=== PATIENT | male | born 1970 | race Two or more races ===

== ENCOUNTER 2020-05-18 06:23 | Inpatient (IN) | payer OTHER ==
[~2020-05-18] VITALS: Ht 175.3 cm; Wt 90.3 kg
[2020-05-18] VITALS (17 sets, daily range): BP systolic 114–165; BP diastolic 71–97
[2020-05-18] MEDS ORDERED: ceFAZolin sod 2 GM in NS 55 ML IVPB ONE (07:00)
[2020-05-18] MEDS ORDERED: Thrombin 5000 units TOPIC ONE (07:41)
[2020-05-18] MEDS ORDERED: Gelfoam Size TOPIC ONE (07:41)
[2020-05-18] MEDS ORDERED: Bacitracin 50000 Units Vial ONE ×2 (07:41→11:40)
--- NOTE | 2020-05-18 07:49 | Pre-Procedure Note/Attestation ---
Pre-Procedure Note/Attestation Complete Prior to Procedure Planned Procedure: not applicable Procedure Narrative: Anterior cervical discectomy and fusion of C45 and artificial disc replacement of Cervical 56 Indications for Procedure Pre-Operative Diagnosis: Cervical herniation of C45 56 67 Attestation I attest that I discussed the nature of the procedure; its benefits; risks and complications; and alternatives (and the risks and benefits of such alternatives ), prior to the procedure, with the patient (or the patient's legal development representative). I attest that, if there was a reasonable possibility of needing a blood transfusion, the patient (or the patient's legal development representative) was given the [facility] standardized written summary, pursuant to the Alexander Hartman Blood Safety Act ([place] Health and Safety Code # 1645, as amended). I attest that I re-evaluated the patient just prior to the surgery and that there has been no change in the patient's H&P, except as documented below: Kaden Garsia MD May 18, 2020 07:49
--- NOTE | 2020-05-18 07:52 | Brief Operative Note ---
Immediate Post Operative Note Operative Note Chief Complaint: neck pain and radiculopathy Pre-op Diagnosis: Cervical herniation of C45 56 67 Procedure: Anterior cervical discectomy and fusion of C45 and artificial disc replacement of Cervical 56 Post-op Diagnosis: same as pre-op Findings: consistent w/pre-op dx studies Surgeon: Ady [employer] Loader: Biju Anesthesiologist: Trudi Anesthesia: general Specimen: none Complications: none Condition: stable Fluids: IVF Estimated Blood Loss: minimal Drains: none Implant(s) used?: Yes - prodisc C sz 5 , nuvasive c interlock sz 5 screws 3x13 Kaden Garsia MD May 18, 2020 07:52
[2020-05-18] MEDS ORDERED: Naloxone 0.4mg/ml Inj IVP PRN (08:00)
[2020-05-18] MEDS ORDERED: Morphine Sulfate 4mg/ml Inj (IV USE ONLY) IV PRN ×2 (08:00)
[2020-05-18] MEDS ORDERED: Morphine Sulfate 2mg/ml Inj(IV/IM USE ONLY) IV PRN (08:00)
[2020-05-18] MEDS ORDERED: HYDROcodone/Acetamin 5/325 tab ORAL PRN ×2 (08:00→09:30)
[2020-05-18] MEDS ORDERED: Chloraseptic Spray 20mL Bottle ORAL PRN (08:00)
[2020-05-18] MEDS ORDERED: HYDROcodone/Acetamin 7.5/325 tab ORAL PRN ×3 (08:00→09:30)
[2020-05-18] MEDS ORDERED: Milk of Magnesia 30ml Ud ORAL PRN (08:00)
[2020-05-18] MEDS ORDERED: Metoclopramide 10mg/2ml Inj IVP PRN (08:00)
[2020-05-18] MEDS ORDERED: HYDROmorphone 1mg/ml Carpuject IVP PRN (08:00)
[2020-05-18] MEDS ORDERED: CIPROFLOXACIN500 M2 ORAL (08:10)
[2020-05-18] MEDS ORDERED: TEMAZEPAM30 MG ORAL (08:12)
[2020-05-18] MEDS ORDERED: IBUPROFEN600 M1 ORAL (08:12)
[2020-05-18] MEDS ORDERED: LR 1000ml 1,000 ML IVLG SCH (09:24)
[2020-05-18] MEDS ORDERED: LORazepam Inj 2mg/ml 1ml IV PRN (09:30)
[2020-05-18] MEDS ORDERED: Hydromorphone 0.5mg/0.5ml inj IVP PRN (09:30)
[2020-05-18] MEDS ORDERED: Atropine Sulfate 0.4mg/ml inj IVP PRN (09:30)
[2020-05-18] MEDS ORDERED: oxyCODONE HCL/Acetaminophen 5/325mg ORAL PRN (09:30)
[2020-05-18] MEDS ORDERED: Meperidine 25mg/0.5ml Inj (FOR RIGORS ONLY) IV PRN (09:30)
[2020-05-18] MEDS ORDERED: DiphenhydrAMINE 50mg/ml Inj IVP PRN (09:30)
[2020-05-18] MEDS ORDERED: Midazolam 2mg/2ml Inj IVP PRN (09:30)
[2020-05-18] MEDS ORDERED: Ketorolac 30mg Inj IV PRN ×2 (09:30)
[2020-05-18] MEDS ORDERED: fentaNYL 100 mcg/2 mL IV PRN (09:30)
[2020-05-18] MEDS ORDERED: Labetalol 5mg/ml 20ml vial IV PRN (09:30)
[2020-05-18] MEDS ORDERED: Acetaminophen (Non formulary) 100 ML IV ONE (09:30)
--- NOTE | 2020-05-18 09:30 | Anethesia Preoperative Eval ---
Anesthesia Pre-op PMH/ROS General Date of Evaluation: May 18, 2020 Time of Evaluation: 10:37 Anesthesiologist: Trudi ASA Score: ASA 3 Mallampati Score Class I : Soft palate, uvula, fauces, pillars visible Class II: Soft palate, uvula, fauces visible Class III: Soft palate, base of uvula visible Class IV: Only hard plate visible Mallampati Classification: Class II Surgeon: Ady Diagnosis: Neck Pain Surgical Procedure: ACDF C4-5, ADR C5-6 Anesthesia History: none Family History: no anesthesia problems Allergies: Coded Allergies: No Known Allergies (Unverified , 05/18/20) Medications: see eMAR Patient NPO?: Yes Past Medical History Cardiovascular: Reports: HTN Endocrine: Reports: DM Other: obesity - BMI 31 Anesthesia Pre-op Phys. Exam Physician Exam Last Vital Signs Date Time Temp Pulse Resp B/P (MAP) Pulse Ox O2 Delivery O2 Flow Rate FiO2 05/18/20 08:09 97.3 73 20 140/86 (104) 100 05/18/20 08:08 Room Air Constitutional: NAD Neurologic: CN 2-12 intact Cardiovascular: RRR Respiratory: CTA Gastrointestinal: S/NT/ND Airway Exam Mallampati Score: Class II MO: full ROM: limited Teeth: missing, intact Anesthesia Pre-op A/P Labs Chemistry Test 05/18/20 08:32 POC Whole Blood Glucose 181 MG/DL (74-106) H Risk Assessment & Plan Assessment: ASA 3 Plan: GA, SED, GlideScope Status Change Before Surgery: No Pre-Antibiotics Dru Grams Ancef IV Given Within 1 Hr of Incision: Yes Time Given: 10:52 Deshaun Brush MD May 18, 2020 09:29
--- NOTE | 2020-05-18 09:31 | Immediate Post-Op Evaluation ---
Immediate Post-Op Evalulation Immediate Post-Op Evalulation Procedure: ACDF C4-5, ADR C5-6 Date of Evaluation: May 18, 2020 Time of Evaluation: 13:44 IV Fluids: 1500 LR Blood Products: 0 Estimated Blood Loss: 50 Urinary Output: 950 Blood Pressure Systolic: 114 Blood Pressure Diastolic: 71 Pulse Rate: 74 Respiratory Rate: 16 O2 Sat by Pulse Oximetry: 100 Temperature (Fahrenheit): 97.4 Pain Score (1-10): 2 Nausea: No Vomiting: No Complications 0 Patient Status: awake, reacts, patent, extubated, none Hydration Status: adequate Dru Grams Ancef IV Given Within 1 Hr of Incision: Yes Time Given: 10:52 Deshaun Brush MD May 18, 2020 09:31
[2020-05-18] MEDS ORDERED: fentaNYL 100 mcg/2 mL IV ONE (10:05)
[2020-05-18] MEDS ORDERED: Lidocaine 1% MPF 10mg/ml 5ml ONE (10:06)
[2020-05-18] MEDS ORDERED: Sodium Chloride 10ml vial INJ ONE (10:06)
[2020-05-18] MEDS ORDERED: Lidocaine 1% Plain 30 ml INJ ONE (10:06)
[2020-05-18] MEDS ORDERED: Rocuronium Bromide 50mg/5ml Inj IV ONE (10:09)
[2020-05-18] MEDS ORDERED: Succinylcholine 20mg/ml 10ml vial ONE (10:10)
[2020-05-18] MEDS ORDERED: NS Irrig 1000ml ONE (10:30)
[2020-05-18] MEDS ORDERED: LR 1000ml ONE (10:30)
[2020-05-18] MEDS ORDERED: propofoL 1,000mg/100ml IV ONE (10:30)
[2020-05-18] MEDS ORDERED: Sterile Water Irrig 1000ml IRRIG ONE (10:30)
[2020-05-18] MEDS ORDERED: Glycopyrrolate 0.2mg/ml 1ml Vial ONE (12:47)
[2020-05-18] MEDS ORDERED: Neostigmine 1mg/ml 10ml Inj ONE (12:47)
--- NOTE | 2020-05-18 15:15 | NUR ---
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 Pt is drowsy but easily arousing to name. Pt is Persian Speaking and on NC @3L with no sign of sob or resp distress. Pt has Right AC 18g. Goyal was DC and awaiting for pt to void post operatively. VSS, pt has OOB and will need IS. Belongings were reviewed with PACU, pt had twp medications bottles that were sent to pharmacy for storage bag # [id number]. Surgery: ACDF of C4-C5. 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 Bed in lowest locked position, call light within reach, will continue with plan of care
--- NOTE | 2020-05-18 16:13 | NUR ---
CASE MANAGEMENT: INITIAL REVIEW 50YR OLD MALE HERE FOR SCHEDULE SURGERY CC: NECK PAIN AND RADICULOPATHY SI: CERVICAL HERNIATION OF C45 56 67 97.3 73 20 140/86 100% ON RA BG 181 IS:IN SURGERY NOW ANTERIOR CERVICAL DISCECTOMY AND FUSION OF C45 AND ARTIFICIAL DISC REPLACEMENT OF CERVICAL 56 \: 3E MED SURG UNIT DCP: HOME WHEN STABLE PLAN: X-RAY C SPINE NEURO CHECKS ENCOURAGE INCENTIVE SPIROMETRY
[2020-05-18] MEDS: Docusate 100mg cap ORAL SCH (17:10)
[2020-05-18] MEDS: NS w/KCl 20mEq 1000ml 1,000 ML IV SCH (17:10)
[2020-05-18] MEDS: ceFAZolin sod 1 GM in D5W 55 ML IV SCH (17:54)
--- NOTE | 2020-05-18 19:30 | NUR ---
NURSE NOTES: Patient awake in bed, alert and oriented x4, no SOB noted. Ice pack on surgical site, no active bleeding. IV access on the right arm. Bed in lowest and lock engaged. Instructed to use call light for assistance. Call light in reach. Will continue plan of care.
--- NOTE | 2020-05-18 21:30 | NUR ---
NURSE NOTES: Patient complained of pain 9/10 on surgical site, medicated as ordered. Dr. Tomlinson was notified for patient's high blood sugar, increased pulse rate and obtained orders for insulin high scale and NS 1L bolus.
[2020-05-18] MEDS: NovoLOG Insulin Flexpen SUBQ SCH (21:39)
--- NOTE | 2020-05-18 23:00 | NUR ---
NURSE NOTES: Spoke with Dr. Garsia on the phone. He was also notified for patient's blood sugar and increased pulse rate. Per patient, no pain on his right arm at this time.
--- NOTE | 2020-05-18 23:00 | NUR ---
NURSE NOTES: Patient urinated with 200ML output.
[2020-05-19] VITALS: BP 120/78
[2020-05-19] MEDS: ceFAZolin sod 1 GM in D5W 55 ML IV SCH ×2 (01:53→10:28)
[2020-05-19 04:00] VITALS: BP 132/75
[2020-05-19] MEDS: NS w/KCl 20mEq 1000ml 1,000 ML IV SCH (05:03)
[2020-05-19] MEDS: NovoLOG Insulin Flexpen SUBQ SCH ×2 (05:32→11:30)
--- NOTE | 2020-05-19 05:51 | NUR ---
NURSE NOTES: Patient had just normal BM. Complained of pain 7/ but refused to have the same dose of pain med he had last night asking for lower dose. He was ok with Morphine 2mg, given.
--- NOTE | 2020-05-19 07:34 | NUR ---
NURSE HAND-OFF: Important Events on Shift:Increased blood sugar and pulse rate (MD aware) Patient Status: Stable Diet: Post-Op Cervical - soft easy chew Pending Orders: [] Pending Results/Labs:Hemoglobin A1C Pending MD notification:[] Latest Vital Signs: Temperature 98.6 , Pulse 95 , B/P 132/75 , Respiratory Rate 18 , O2 SAT 93 , Room Air, O2 Flow Rate 0 . Vital Sign Comment: watch out for pulse rate Latest Chaudhari Fall Score: 35 Fall Risk: Medium Risk Safety Measures: Call light Within Reach, Bed Alarm Zone 2, Side Rails Side Rails x2, Bed position Low and Locked. Fall Precautions: Door Sign Patient Fall Education Report given to ELAYNE Yanes.
[2020-05-19 08:00] VITALS: BP 149/90
--- NOTE | 2020-05-19 08:00 | NUR ---
NURSE NOTES: Report received from Kip HOLLY. Patient seen on rounds, AxOx4, lebanese-speaking, not in distress, no co pain at this time. Surgical site noted over right cervical region noted, site looks clean with no drainage. PIV on right AC patent and intact. Bed low and locked, siderails up x2, call light placed within reach and instructed to call nurse for assistance. Will continue to monitor.
[2020-05-19 08:42] VITALS: BP 136/74
--- NOTE | 2020-05-19 08:42 | 48 Hour Post Anesthesia Eval ---
Post Anesthesia Evaluation Procedure: ACDF C4-5, ADR C5-6 Date of Evaluation: May 19, 2020 Time of Evaluation: 08:41 Blood Pressure Systolic: 136 0: 74 Pulse Rate: 68 Respiratory Rate: 20 Temperature (Fahrenheit): 97.6 O2 Sat by Pulse Oximetry: 98 Airway: patent Nausea: No Vomiting: No Pain Intensity: 3 Hydration Status: adequate Cardiopulmonary Status: stable Mental Status/LOC: patient returned to baseline Follow-up Care/Observations: n/a Post-Anesthesia Complications: none Follow-up care needed: ready to discharge Jesus Manuel Peraza MD May 19, 2020 08:42
--- NOTE | 2020-05-19 08:47 | NUR ---
NURSE NOTES: Seen and evaluated by and cleared to discharge today. Order noted and carried out.
[2020-05-19] MEDS: Docusate 100mg cap ORAL SCH (08:52)
[2020-05-19] MEDS ORDERED: CEPHALEXIN500 M1 ORAL (09:28)
[2020-05-19] MEDS ORDERED: NORCO 10-325 T1 EACH ORAL (09:29)
--- NOTE | 2020-05-19 09:33 | NUR ---
NURSE NOTES: Spoke to regarding discharge and ok to discharge today. Order noted and carried out.
--- NOTE | 2020-05-19 11:40 | NUR ---
NURSE NOTES: Patient discharged home for self-care. Pt is AxOx4, not in any pain, surgical site over right neck is clean and dry with no signs of infection or inflammation. Vital signs are stable prior to discharge. All discharge instructions discussed with patient and provided singaporean translation of document and pt verbalized understanding. Pt educated on use of pain medication and antibiotics. Prescription sent home with patient as well as patient's own medication supply. PIV removed and dressed, no sx of bleeding. Belongings accounted for and signed. Patient left at 11:40am accompanied by son in private vehicle.
--- NOTE | 2020-05-19 11:49 | NUR ---
PT Note PT irish completed, treatment initiated. Patient was initially unsteady with c/o dizziness. Patient was instructed on safety precautions, proper neck care and proper log rolling techniques. Patient was able to demonstrate understanding of instructions through return demo. Addendum: 05/19/20 at 1150 by SEMAJ SHEEHAN PT Amended: Links added.
--- NOTE | 2020-05-19 13:00 | Operative Note - Dictated ---
DATE OF OPERATION: 05/18/2020 SURGEON: Kaden Garsia MD, Orthopaedic Spine Surgeon. CHEMICAL LABORATORY ASSISTANT: ILIANA Tomas. PREOPERATIVE DIAGNOSES: 1. Intractable neck pain. 2. Radiculopathy. 3. Herniation, C4-C5 and C5-C6. 4. Neural foraminal stenosis, C4-C5 and C5-C6. 5. Stenosis. POSTOPERATIVE DIAGNOSES: 1. Intractable neck pain. 2. Radiculopathy. 3. Herniation, C4-C5 and C5-C6. 4. Neural foraminal stenosis, C4-C5 and C5-C6. 5. Stenosis. PROCEDURE PERFORMED: 1. Anterior cervical discectomy and artificial disc replacement of C5-C6 using a Synthes ProDisc C cervical arthroplasty size 5 height. 2. Anterior cervical discectomy and fusion of C4-C5 using NuVasive Interlock C size 5 PEEK cage and three 13-mm screws and 1 mL of Osteocel allograft bone and local autograft. 3. Use of intraoperative microscope. 4. Motor-evoked potential monitoring. 5. Somatosensory-evoked potential monitoring. 6. Supervision and interpretation of fluoroscopy. COMPLICATIONS: None. ANESTHESIA: General. ESTIMATED BLOOD LOSS: Less than 100 mL. INDICATIONS FOR SURGERY: This patient is a 50-year-old male who has a history of diagnoses as listed above. As of result of this, the patient sustained intractable neck pain, radiculopathy, herniation of C4-C5 and C5-C6, neural foraminal stenosis of C4-C5 and C5-C6, and stenosis. We tried a course of conservative management, but despite this course, there was still a significant component of persistent, recalcitrant neck pain and arm pain. The MRI demonstrated significant neural foraminal compromise secondary to disc herniations at C4-C5 and C5-C6. We had a long discussion with Enrique regarding the risks and benefits of surgery. Our discussion included, but was not limited to nonoperative management, chiropractic management, another epidural steroid injection as well as definitive management in the form of surgery. We recommended an artificial disc replacement of cervical C5-C6 and anterior cervical discectomy and fusion of cervical C4-C5 as final definitive management. We reviewed the risks and benefits of surgery with the patient. Our discussion included a comprehensive review of the clinical issues and the nature of the clinical decision. We reviewed the alternatives, including doing nothing. The patient elected to proceed accordingly with an artificial disc replacement of cervical C5-C6 and anterior cervical discectomy and fusion of cervical C4-C5. We had a long discussion regarding the risks, alternatives and benefits of surgery. Our description of the risks included a discussion in person as well as a signed consent which detailed all pertinent risks from the procedure itself. Briefly, our discussion included but was not limited to infection, bleeding, pseudarthrosis, spinal cord injury, neurovascular injury, dural tear, CSF leak, neuropathy, paralysis, permanent weakness/drop foot/drop arm, paresthesias, blindness, palsy, and weakness. The patient understood there may be a need for a revision surgery or additional procedures. Approach-related complications including dysphonia, dysphagia, blindness, permanent vocal cord and neural injury, hematoma, swallowing and breathing difficulty. Medical complications were reviewed including liver, kidney, shock, cardiopulmonary failure, anesthesia complications including , swelling, damage to the musculature, larynx/voice injury or loss, esophagus/throat, trachea, blood vessels and muscles/muscular sprain and lungs/pneumothorax during this surgical procedure; injury to deeper structures may be temporary or permanent. After this review of risks, the patient understood these and elected to proceed. A written and verbal consent was given. We discussed the pros and cons of all the alternatives. We discussed the uncertainties associated with the decision. Afterwards, I assessed the patient's understanding and explored his preferences. All questions were answered and no guarantees were given. Medical clearance was obtained prior to surgery. INTRAOPERATIVE FINDINGS: C4-C5; there were no anterior osteophytic spurs. The disc itself was soft and spongy; not dehydrated, dry, desiccated, or crumbled. Upon removal of the anterior portion of the disc, upon arrival of the posterior longitudinal ligament, there was a tear in the PLL approximately 15 to 10 degrees cephalad to caudad on the right neural foramina. There was a tear I noted of the posterior limb of the herniated nucleus pulposus. This was probed with Microsect 1-B and a 2-B curette. The process led me fragment of herniated nuclear tissue encroaching on the right neural foramina. This was resected with Kerrison 1 and Kerrison 2 rongeurs with complete foraminotomy performed for this patient. I should note that the findings intraoperatively were worse than I had anticipated based on the MRI. It appeared that more herniated nuclear tissue had migrated through the tear perhaps since his last study as there was severe foraminal compression on the right neural foramina. C5-C6; at C5-C6, there were no osteophytic spurs noted. The disc itself was soft and spongy with appropriate disc height. Upon removal of the anterior portion of the disc, we noted through the posterior longitudinal ligament, there was a tear approximately 10 degrees cephalad to caudad. This tear was interesting in that there was a broad piece of herniated nuclear tissue within the body of the tear. This was probed with a Microsect 1-B curette, which gave rise to the remainder of a nuclear fragment, which was causing neural foraminal stenosis on the right side, which was resected with Kerrison 1 and Kerrison 2 rongeurs. This was broader than anticipated based on his MRI findings. DESCRIPTION OF PROCEDURE: Under the benefit of general endotracheal anesthesia and with the assistance of the entire operative team, the patient was moved from the rsitka onto the operative table in the supine position. The head was secured and carefully positioned appropriately. Bilateral arms were secured with Gel Pads and foam and all bony prominences were padded. For the bilateral lower extremities, SCD and ZELALEM hose were placed for DVT prophylaxis. A surgical timeout was called, which corroborated our planned procedure of artificial disc replacement of an artificial disc replacement of cervical C5-C6 and anterior cervical discectomy and fusion of cervical C4-C5. Preoperative antibiotics were administered within 30 minutes of the incision for antibiotic prophylaxis. Using lateral fluoroscopic radiography, the operative levels were delineated. Next, the wound was prepped and draped with chlorhexidine and sterile drapes. An incision was based on lateral fluoroscopy and we centered our incision at the C4-C5 and C5-C6 interspace and next, using a standard Ford-Arzate anterior-based approach, the incision was taken down through the skin and subcutaneous tissues until the vertebral bodies and their corresponding disc spaces were visualized. A needle was placed into the interspace to confirm placement of the operative interspace and we performed the remainder of procedure under microscopic visualization. Next, using a bipolar and Bovie cautery to ensure meticulous hemostasis, the longus colli was mobilized bilaterally and retractors were placed deep to the longus colli bilaterally to address retraction. Next, we turned our attention to the radical anterior discectomy. This was initially performed at C5-C6 first by using a 15 blade scalpel followed by narrow pituitaries and a Microsect 5-B curette was used to denude the endplate of all cartilaginous tissue. Next, using a [employer] AM8 drill bit, the vertebral endplates were denuded of all residual cartilage in a hpva-ok-zcvu and vswgp-zr-jasqu fashion, and ultimately the posterior uncinate joints bilaterally and posterior osteophytic lips and margins were carefully denuded until clear visualization of the posterior longitudinal ligament was possible. An endplate preparation was performed in the exact same fashion using an intervertebral electric car operator, sequential distraction was obtained throughout the disc space. We saw a tear/rent in the PLL and this was carefully mobilized and dissected using a Microsect 1-B curette until we visualized a discrete disc herniation with compression of the spinal cord as well as neural foramina, which was right-sided. This neural foraminal compression was carefully resected using a Kerrison-1 and Kerrison-2 rongeurs until complete decompression of the spinal cord was visualized and complete decompression of the neural foramina and nerve root therein as well as the axilla and lateral margin of the nerve root was visualized and subsequently completely decompressed. The family was notified at one-hour intervals throughout the procedure to provide for consistent updates. We next turned our attention towards trialing our implant within the disc space. We initially tried size 5 and this ProDisc Cervical spacer fit well in regard to depth and width. This implant was opened and prepared. Next, under direct visualization, I confirmed excellent fit in respect to the anterior and posterior vertebral bodies, the uncinate joints, and in regard to toggle. Once satisfied with this placement on serial AP and lateral fluoroscopy, I turned my attention towards cutting our elena. These were cut in the bones using a reciprocating drill and afterwards all free fragments of bone were irrigated. Next, FloSeal was placed into the interspace, then removed in its entirety and the implant was inserted using fluoroscopic guidance. Next, the Synthes ProDisc C size 5 ADR was then carefully advanced and secured into the intervertebral space under direct visualization and with supervision of AP and lateral fluoroscopic views. I next turned my attention towards the radical anterior discectomy. This was then performed at Cervical C4-C5 first by using a 15 blade scalpel followed by narrow pituitaries and a Microsect 5-B curette was used to denude the endplate of all cartilaginous tissue. Next, using a [email or web address] AM8 drill bit, the vertebral endplates were denuded of all cartilaginous tissue in a gnsz-ps-luwy and ghvhl-vz-agpvp fashion, and ultimately the posterior uncinate joints bilaterally and posterior osteophytic lips and margins were carefully denuded until wide and thorough visualization of the posterior longitudinal ligament was possible. At this level, the endplate preparation was performed in the exact same fashion using an intervertebral electric car operator, sequential distraction was obtained throughout the disc space. We saw a tear/rent in the PLL and this was carefully mobilized and dissected using a Microsect 1-B curette until we visualized an obvious disc herniation with compression of the spinal cord as well as neural foramina, which was right-sided. This neural foraminal compression was carefully resected using a Kerrison-1 and Kerrison-2 rongeurs until complete decompression of the spinal cord was visualized and complete decompression of the neural foramina and nerve root therein as well as the axilla and lateral margin of the nerve root was visualized and subsequently completely decompressed. We next turned our attention towards trialing our implant within the disc space. We initially tried size 5 trial from the NuVasive Interlock system at each level, which appeared to be appropriate under AP and lateral fluoroscopy as well as in terms of its height, depth, width, and lack of toggle. The PEEK (polyetheretherketone) interbody cages were then both packed with 1 mL of allograft bone from Osteocel and local autograft bone matrix. Next, these were then carefully advanced and secured into their intervertebral spaces under direct visualization and with supervision of AP and lateral fluoroscopic views. We next turned our attention towards plating. Plating was performed at each level with the NuVasive Interlock-C plating system. A total of three screws, size 13 mm in length were inserted and confirmed under AP and lateral fluoroscopy and confirmed to be in excellent position. After a finger sweep, we confirmed removal of all sponges. The retractor was removed and we next turned our attention to meticulous hemostasis with FloSeal and bipolar cautery. After the sponge and needle count was again found to be correct with our second count, we next turned our attention to closure. The wound was again copiously irrigated with antibiotic-impregnated saline. Closure consisted of 4-0 clear nylon for the platysma, and 5-0 clear nylon for the superficial skin. Final skin closure and dressings consisted of Dermabond. Prior to final closure, a final radiograph was obtained, which demonstrated the hardware was intact with excellent position throughout. The patient tolerated the procedure well. The patient was carefully extubated after the conclusion of surgery. We discussed the findings of the surgery with the family upon completion of the case. At this point, the patient was transferred to the spine floor for further observation. Kaden Garsia M.D. DR: Mk JOB#: [id number] CC:
--- NOTE | 2020-05-19 15:15 | Discharge Summary ---
DATE OF ADMISSION: 05/18/2020 DATE OF DISCHARGE: 05/19/2020 PROCEDURE PERFORMED DURING ADMISSION: Anterior cervical discectomy and fusion of C4-C5. Artificial disc replacement of C5-C6. REASON FOR ADMISSION: Cervical herniation, C4-C5 and C5-C6. HOSPITAL COURSE/TREATMENT RENDERED: DISCHARGE PHYSICAL EXAMINATION: 1. The patient was ambulating with and without the assistance of physical therapy. 2. Prior to discharge home, incision was clean and dry with minimal swelling. 3. Follows commands. 4. Alert and oriented. 5. Goyal discontinued, voiding. 6. Incentive spirometer at bedside. 7. IVF hep-locked. MOTOR: Demonstrates expected postoperative bulk and tone. Moves biceps, triceps, and deltoid musculature on command. Moves hip flexors, quadriceps, tibialis anterior, EHL, gastrocsoleus musculature on command as well. TREATMENT RENDERED: 1. Daily nursing care. 2. Physical therapy. 3. Occupational therapy. 4. Intravenous medications. 5. Oral medications. 6. Daily postoperative examinations by Spine surgery team. CONDITION OF PATIENT ON DISCHARGE: The condition on discharge is stable for discharge to home. DISCHARGE INSTRUCTIONS: Our specific instructions relating to physical activity, medications, diet and followup care are detailed in our standard operative folder and were given to this patient prior to surgery. We will however summarize these briefly as stated below. Regarding physical activity, we would like the patient to limit his flexion, extension and rotation. We also require a limitation on his bending, lifting and twisting. All medication has been called in prior to surgery to his pharmacy of choice. He can resume his regular diet once tolerated. We would like him to shower and limit soaking the wound in a tub/Jacuzzi/the ocean for a period of one month or until the incision is completely healed. We will have him follow up in our office in three weeks' time for his regularly scheduled appointment. He understand to call our office tomorrow to schedule the time for his three week followup appointment. The patient will notify us should he experience any increase in the severity of pain, redness, swelling, or drainage from his incision. Kaden Garsia M.D. DR: CONG JOB#: [id number] CC:
--- NOTE | 2020-05-21 13:15 | Diagnostic Imaging Report ---
INDICATION: Pain, intraoperative TECHNIQUE: Intraoperative imaging Fluoroscopy time: 54.7 seconds Total dose: [id number] mGym2 Total number of images: 6 COMPARISON: None FINDINGS: Intraoperative images demonstrate surgical tools overlying the C3-4 disc and the C5 vertebral body. Subsequent images document a surgical tool at the anterior aspect of the C5-6 disc. Subsequent images document placement of a disc prosthesis at C5-6 and anterior fusion hardware at C4-5. IMPRESSION: Intraoperative imaging, as described
== END 2020-05-19 11:40 | disposition home or self-care (01) | DRG 473 ==
LOC: SDSOVERFLO 06:23 → 3E 15:16
DX: M50.321 Other cervical disc degeneration at C4-C5 level (principal); V89.2XXS Person injured in unspecified motor-vehicle accident, traffic, sequela; M48.02 Spinal stenosis, cervical region; E11.9 Type 2 diabetes mellitus without complications; G47.00 Insomnia, unspecified
CPT/HCPCS: 36415; 72040; 76000; 82962; 83036; 86850; 86900; 86901; 87081; 94003; 94150; J1815; J2180; J2405; J2710; U0002